=== PATIENT | male | born 1960 | race Caucasian/White ===

== ENCOUNTER 2023-05-06 01:10 | Inpatient (IN) | payer BC ==
[~2023-05-06] VITALS: Ht 188 cm; Wt 90.9 kg
[2023-05-06] VITALS (22 sets, daily range): BP systolic 128–158; BP diastolic 78–93; PULSE 81–102; RESP 14–24; TEMP 97.5–98.3; O2SAT 85–98
[2023-05-06 01:33] LABS: BASOPHILS # (AUTO) 0.1 X10'3 (0-0.2); BASOPHILS % (AUTO) 0.4 % (0-1); EOSINOPHILS % (AUTO) 0.1 % (0-6); HEMATOCRIT 48.8 % (42.0-52.0); HEMOGLOBIN 16.7 g/dl (14.0-17.9); LYMPHOCYTES # (AUTO) 1.8 X10'3 (1.1-4.8); LYMPHOCYTES % (AUTO) 10.6 % (21-51); MEAN CORPUSCULAR HGB CONC 34.1 g/dL (33.0-36.5); MEAN CORPUSCULAR VOLUME 102.4 FL (78-98); MEAN PLATELET VOLUME 7.9 FL (7.4-10.4); MONOCYTES # (AUTO) 1.4 X10'3 (0-0.9); MONOCYTES % (AUTO) 8.3 % (2-12); NEUTROPHILS # (AUTO) 13.9 X10'3 (1.8-7.7); NEUTROPHILS % (AUTO) 80.6 % (42-75); PLATELET COUNT 230 X10'3 (140-440); RED BLOOD COUNT 4.76 X10'6 (4.70-6.10); RED CELL DISTRIBUTION WIDTH 12.9 % (11.5-14.5); WHITE BLOOD COUNT 17.2 X10'3 (4.5-11.0)
[2023-05-06] MEDS ORDERED: metoprolol tartrate 50mg tablet PO ONE (01:35)
[2023-05-06] MEDS ORDERED: aspirin 81mg tab.chew PO ONE (01:35)
[2023-05-06 01:47] LABS: ALANINE AMINOTRANSFERASE 51 U/L (12-78); ALBUMIN/GLOBULIN RATIO 1.1 (1.1-1.5); ALKALINE PHOSPHATASE 95 IU/L (46-116); ANION GAP 11 (8-16); ASPARTATE AMINO TRANSFERASE 174 U/L (10-37); BILIRUBIN,TOTAL 1.4 MG/DL (0.1-1.0); BLOOD UREA NITROGEN 15 MG/DL (7-18); BUN/CREATININE RATIO 14.6 (10.0-20.0); CALCIUM 8.8 MG/DL (8.5-10.1); CHLORIDE 97 MMOL/L (99-107); CREATININE 1.03 MG/DL (0.60-1.10); GLUCOSE 139 MG/DL (70-104); POTASSIUM 3.8 MMOL/L (3.5-5.1); SODIUM 133 MMOL/L (135-145); TOTAL CARBON DIOXIDE 25.3 MMOL/L (24-32); TOTAL PROTEIN 7.6 G/DL (6.4-8.2); eGFR 73 ML/MIN
[2023-05-06] MEDS: nitroGLYCERIN 0.4mg SUBLingual tab SL PRN ×2 (01:47→04:41)
[2023-05-06] MEDS ORDERED: heparin 10,000 units/1 ML INJ IV ONE ×2 (02:30→02:35)
[2023-05-06] MEDS ORDERED: heparin 25,000 UNIT/250ml bag 250 ML IV PRN ×2 (02:30→06:00)
[2023-05-06] MEDS ORDERED: heparin 10,000 units/1 ML INJ IV PRN ×2 (02:30→06:00)
[2023-05-06] MEDS ORDERED: potassium Cl 40MEQ/1/2NS 520ml 520 ML IV PRN (02:35)
[2023-05-06] MEDS ORDERED: acetaminophen 325mg tablet PO PRN (02:35)
[2023-05-06] MEDS ORDERED: ondansetron/PF 4mg/2ml inj IV PRN (02:35)
[2023-05-06] MEDS ORDERED: magnesium 4gm in 100ml NS 100 ML IV PRN (02:35)
[2023-05-06] MEDS ORDERED: mag hydrox/Alum hydrox/simeth 30ml oral suspension PO PRN (02:35)
[2023-05-06] MEDS ORDERED: potassium Cl 20 mEq SR tablet PO PRN ×2 (02:35)
[2023-05-06] MEDS ORDERED: morphine 2 MG/ML inj. syringe IV PRN ×2 (02:35)
[2023-05-06] MEDS ORDERED: atorvastatin 20mg tablet PO ONE (02:35)
[2023-05-06] MEDS ORDERED: PERFLUTREN PROTEIN-A MICROSPHR (Optison) 0.22 MG/ML 3ML VIAL IV PRN (02:35)
[2023-05-06 03:19] LABS: BASOPHILS # (AUTO) 0.1 X10'3 (0-0.2); BASOPHILS % (AUTO) 0.6 % (0-1); EOSINOPHILS % (AUTO) 0.1 % (0-6); HEMOGLOBIN 15.8 g/dl (14.0-17.9); LYMPHOCYTES % (AUTO) 6.6 % (21-51); MEAN CORPUSCULAR HEMOGLOBIN 34.3 PG (27.0-31.0); MEAN CORPUSCULAR HGB CONC 33.7 g/dL (33.0-36.5); MEAN CORPUSCULAR VOLUME 101.8 FL (78-98); MEAN PLATELET VOLUME 8.1 FL (7.4-10.4); MONOCYTES # (AUTO) 1.2 X10'3 (0-0.9); MONOCYTES % (AUTO) 7.6 % (2-12); NEUTROPHILS # (AUTO) 13.5 X10'3 (1.8-7.7); NEUTROPHILS % (AUTO) 85.1 % (42-75); PLATELET COUNT 240 X10'3 (140-440); RED BLOOD COUNT 4.61 X10'6 (4.70-6.10); RED CELL DISTRIBUTION WIDTH 12.8 % (11.5-14.5); WHITE BLOOD COUNT 15.9 X10'3 (4.5-11.0)
[2023-05-06] MEDS ORDERED: hydrALAZINE 20mg/ml inj. IV PRN (03:25)
[2023-05-06 03:28] LABS: APTT 28 SECONDS (22-32)
[2023-05-06] MEDS: nitroGLYCERIN 0.4mg/hour patch TD SCH (04:12)
[2023-05-06 04:20] LABS: MAGNESIUM 1.9 MG/DL (1.5-2.4)
[2023-05-06] MEDS: K and/or MAG REPLACEMENT MC SCH ×2 (07:29→20:55)
[2023-05-06] MEDS: docusate sod 100mg capsule PO SCH ×2 (07:30→20:00)
[2023-05-06] MEDS ORDERED: atorvastatin 20mg tablet PO SCH (08:00)
[2023-05-06 10:04] LABS: HDL CHOLESTEROL 53 MG/DL (35-60); LDL CHOLESTEROL 170 MG/DL (50-100); TRIGLYCERIDES 68 MG/DL (20-135)
[2023-05-06 10:08] LABS: CHOL/HDL RATIO 4.8 (0.00-4.99); CHOLESTEROL 257 MG/DL (0-200)
[2023-05-06] MEDS: aspirin 81mg tab.chew PO SCH (10:13)
[2023-05-06] MEDS ORDERED: heparin 1,000unit/ml 10ml vial 10 ML ONE (11:18)
[2023-05-06] MEDS ORDERED: LIDOcaine 1% (10mg/ml) 2ml vial ONE (11:18)
[2023-05-06] MEDS ORDERED: verapamil 2.5 mg/ml inj IV ONE (11:18)
[2023-05-06] MEDS ORDERED: fentaNYL/PF 50MCG/1 ML 2ML syringe ONE (11:18)
[2023-05-06] MEDS ORDERED: midazolam 1 mg/ML 2ml injection ONE (11:18)
[2023-05-06] MEDS ORDERED: iohexol 350MG/ML 100ml bottle IV ONE ×2 (11:19→12:17)
[2023-05-06] MEDS ORDERED: nitroGLYCERIN-Tridil 50MG/D5W 250 ML IV ONE (11:19)
[2023-05-06] MEDS ORDERED: ticagrelor 90mg tablet ONE (12:29)
[2023-05-06] MEDS ORDERED: aspirin 325mg tablet ONE (12:29)
[2023-05-06] MEDS ORDERED: iohexol 350 MG/ML 50ML vial IV ONE (12:30)
[2023-05-06] MEDS ORDERED: HYDROcodone/acetaminophen 5mg/325mg tablet PO PRN (13:15)
[2023-05-06] MEDS ORDERED: HYDROcodone/acetaminophen 10/325mg tab PO PRN (13:15)
--- NOTE | 2023-05-06 14:00 | NUR ---
Bedside report given to NNEKA Morfin. All questions answered. Right radial site stable, no bleeding noted. Vasc band in place.
--- NOTE | 2023-05-06 14:10 | NUR ---
Patient arrived to unit via wheel chair accompanied by Sindhu EARLY short stay nurse. No complaint of pain or discomfort noted at this time. Brother Nikolay is at bedside. Call light is in reach and BLL.
--- NOTE | 2023-05-06 18:35 | NUR ---
Problems reprioritized. Patient report given, questions answered & plan of care reviewed with Cheryl EARLY.
--- NOTE | 2023-05-06 18:45 | NUR ---
Patient in room PCU 3023. I have received report from Shelbie BAGLEY and had the opportunity to ask questions and assume patient care.
[2023-05-06] MEDS: metoprolol tartrate 25mg tablet PO SCH (20:52)
[2023-05-07 02:00] VITALS: BP 140/91; PULSE 98; RESP 18; TEMP 98.6; O2SAT 96
[2023-05-07 06:30] VITALS: BP 148/97; PULSE 97; RESP 16; TEMP 98.9; O2SAT 100
[2023-05-07 07:16] LABS: BASOPHILS % (AUTO) 0.1 % (0-1); EOSINOPHILS % (AUTO) 0 % (0-6); HEMOGLOBIN 16.5 g/dl (14.0-17.9); LYMPHOCYTES # (AUTO) 1.1 X10'3 (1.1-4.8); LYMPHOCYTES % (AUTO) 5.8 % (21-51); MEAN CORPUSCULAR HEMOGLOBIN 35.1 PG (27.0-31.0); MEAN CORPUSCULAR HGB CONC 34.3 g/dL (33.0-36.5); MEAN CORPUSCULAR VOLUME 102.2 FL (78-98); MEAN PLATELET VOLUME 8.5 FL (7.4-10.4); MONOCYTES # (AUTO) 1.8 X10'3 (0-0.9); MONOCYTES % (AUTO) 9.4 % (2-12); NEUTROPHILS # (AUTO) 16.2 X10'3 (1.8-7.7); NEUTROPHILS % (AUTO) 84.7 % (42-75); PLATELET COUNT 197 X10'3 (140-440); RED CELL DISTRIBUTION WIDTH 13.2 % (11.5-14.5); WHITE BLOOD COUNT 19.1 X10'3 (4.5-11.0)
--- NOTE | 2023-05-07 07:20 | NUR ---
Problems reprioritized. Patient report given, questions answered & plan of care reviewed with Marcela RN.
[2023-05-07 07:35] LABS: ALANINE AMINOTRANSFERASE 78 U/L (12-78); ALBUMIN 3.1 G/DL (3.4-5.0); ALBUMIN/GLOBULIN RATIO 0.8 (1.1-1.5); ALKALINE PHOSPHATASE 73 IU/L (46-116); ANION GAP 14 (8-16); ASPARTATE AMINO TRANSFERASE 349 U/L (10-37); BILIRUBIN,TOTAL 2.9 MG/DL (0.1-1.0); BLOOD UREA NITROGEN 14 MG/DL (7-18); BUN/CREATININE RATIO 15.7 (10.0-20.0); CALCIUM 8.8 MG/DL (8.5-10.1); CHLORIDE 98 MMOL/L (99-107); CREATININE 0.89 MG/DL (0.60-1.10); GLUCOSE 131 MG/DL (70-104); POTASSIUM 3.7 MMOL/L (3.5-5.1); SODIUM 133 MMOL/L (135-145); TOTAL CARBON DIOXIDE 21.3 MMOL/L (24-32); TOTAL PROTEIN 6.8 G/DL (6.4-8.2); eGFR 86 ML/MIN
[2023-05-07] MEDS: nitroGLYCERIN 0.4mg/hour patch TD SCH (08:00)
[2023-05-07] MEDS: K and/or MAG REPLACEMENT MC SCH (08:00)
[2023-05-07] MEDS ORDERED: atorvastatin 20mg tablet PO SCH (08:00)
[2023-05-07] MEDS ORDERED: ticagrelor 90mg tablet PO SCH (08:00)
[2023-05-07] MEDS ORDERED: metoprolol succinate 25mg (24-HOUR) SR. Tablet PO SCH (08:00)
[2023-05-07] MEDS: docusate sod 100mg capsule PO SCH (08:53)
[2023-05-07] MEDS: aspirin 81mg tab.chew PO SCH (08:54)
[2023-05-07] MEDS: metoprolol tartrate 25mg tablet PO SCH (08:56)
[2023-05-07] MEDS ORDERED: ASPI81TA53 PO (09:28)
[2023-05-07] MEDS ORDERED: TICA90TA PO (09:28)
[2023-05-07] MEDS ORDERED: ATOR40TA PO (09:28)
[2023-05-07] MEDS ORDERED: LOP25T PO (09:28)
[2023-05-07] MEDS ORDERED: NITR0.4T51 SL (09:28)
[2023-05-07 10:30] VITALS: BP 147/90; PULSE 86; RESP 13; TEMP 97.7; O2SAT 93
--- NOTE | 2023-05-07 11:59 | NUR ---
PAGE TO EKG 6757W. ROBIN. BRUMFIELD WOULD LIKE A POST CATH EKG BEFORE DISCHARGE. THANK YOU - KODY @[phone]
--- NOTE | 2023-05-07 14:30 | NUR ---
PT DISCHARGED TO HOME - BROTHER IS PICKING UP PATIENT AND TRANSPORTING BACK TO HIS HOME IN [place]. ALL DC INSTRUCTIONS EXPLAINED TO PATIENT AND BROTHER WITH BOTH VERBALIZING UNDERSTANDING REGARDING PLAN OF CARE. PT WILL FOLLOW UP WITH HIS PRIMARY CARE DOCTOR - DR SPEARS, TO GET A REFERRAL FOR A UNIT DIRECTOR IN HIS TOWN OF [place]. PTS BROTHER PICKED UP ALL PRESCRIPTIONS AT THE LOCAL [facility] AND I VISUALIZED THE [facility]LE [facility] [place] FOR THE PATIENT - HIS COPAY WAS $20. PT WILL HAVE LABS DRAWN AT THE LAB OF HIS CHOICE WITHIN 3 DAYS TO FOLLOW UP ON HIS ELEVATED LIVER ENZYMES. PT LEFT ON FOOT WITH HIS FAMILY ON FOOT DOWN TO THE [facility] - VSS AND A/OX4 PATIENTS CELL PHONE WOOD TREATING INSPECTOR AND PHONE WITH THE PATIENT
== END 2023-05-07 14:31 | disposition home or self-care (01) | DRG 247 ==
LOC: ER 01:11 → EDSEX 01:11 → ED HOLD 02:45 → PCU 3S 14:00
PROVIDERS: ADMIT Family Medicine; ATTEND Internal Medicine
PROC: 4A023N7 Measurement of Cardiac Sampling and Pressure, Left Heart, Percutaneous Approach (ICD-10-PCS; principal; 2023-05-06)
PROC: 027034Z Dilation of Coronary Artery, One Artery with Drug-eluting Intraluminal Device, Percutaneous Approach (ICD-10-PCS; 2023-05-06)
PROC: B2111ZZ Fluoroscopy of Multiple Coronary Arteries using Low Osmolar Contrast (ICD-10-PCS; 2023-05-06)
DX: I21.4 Non-ST elevation (NSTEMI) myocardial infarction (principal); D72.829 Elevated white blood cell count, unspecified; I10 Essential (primary) hypertension; E78.5 Hyperlipidemia, unspecified; R74.01 Elevation of levels of liver transaminase levels; I25.10 Atherosclerotic heart disease of native coronary artery without angina pectoris; Z79.02 Long term (current) use of antithrombotics/antiplatelets; Z79.82 Long term (current) use of aspirin; Z79.899 Other long term (current) drug therapy; Z82.49 Family history of ischemic heart disease and other diseases of the circulatory system
CPT/HCPCS: 93306; 93458; 99285; C9600; 36415; 71045; 80053; 80061; 83735; 83880; 84484; 85025; 85347; 85610; 85730; 93005; 99152; 99153; A4615; C1725; C1751; C1769; C1874; C1894; G0378; J0360; J1644; J2250; J2405; J3010; J3490; J7030; Q9967